=== PATIENT | female | born 1980 | race Caucasian/White ===

== ENCOUNTER 2022-03-08 23:32 | Observation (INO) | payer BC, MEDICAID ==
[~2022-03-08] VITALS: Ht 157.5 cm; Wt 108.9 kg
[~2022-03-08 23:32] MED LIST: ALBU17AE26 IH; OMEP40CA20 PO; PSEU30TA36; Q-VAR INH
[2022-03-08 23:35] VITALS: BP_SYST 145
--- NOTE | 2022-03-08 23:40 | NUR ---
DR. ALEXANDRE AT BEDSIDE FOR MSE
[2022-03-09 01:09] LABS: BASOPHILS % (AUTO) 0.7 % (0.0-2.0); EOSINOPHILS # (AUTO) 0.1 K/uL (0.0-0.4); EOSINOPHILS % (AUTO) 1.7 % (0.0-4.0); HEMOGLOBIN 8.6 g/dL (12.0-16.0); LYMPHOCYTES # (AUTO) 0.8 K/uL (1.0-5.5); LYMPHOCYTES % (AUTO) 15.6 % (20.5-51.5); MEAN CORPUSCULAR HEMOGLOBIN 23 pg (27-31); MEAN CORPUSCULAR HGB CONC 32 % (32-36); MEAN CORPUSCULAR VOLUME 71 fL (79.0-98.0); MONOCYTES # (AUTO) 0.3 K/uL (0.0-1.0); PLATELET COUNT (AUTO) 300 K/uL (130-430); RED CELL DISTRIBUTION WIDTH 16.8 % (9.0-15.0); WHITE BLOOD COUNT (AUTO) 5.3 K/uL (4.8-10.8)
[2022-03-09 01:15] LABS: ANION GAP 8 (5-15); CALCIUM 7.8 mg/dL (8.4-11.0); CHLORIDE 106 mmol/L (98-107); CREATININE 0.75 mg/dL (0.55-1.30); GLUCOSE 110 mg/dL (70-99); POTASSIUM 3.5 mmol/L (3.5-5.1); SODIUM SERUM 141 mmol/L (136-145); UREA NITROGEN, BLOOD 11 mg/dL (8-21)
[2022-03-09 01:19] LABS: PROTHROMBIN TIME 9.9 SECS (9.5-12.5)
[2022-03-09 01:23] LABS: ALANINE AMINOTRANSFERASE 22 U/L (12-78); ALBUMIN 3.2 g/dL (3.4-4.8); ASPARTATE AMINOTRANSFERASE 8 U/L (10-37); TOTAL BILIRUBIN < 0.1 mg/dL (0.0-1.0)
[2022-03-09 01:24] LABS: GFR AFRICAN AMERICAN 108 mL/min (>90)
--- NOTE | 2022-03-09 01:52 | NUR ---
REPORT RECEIEVED FROM MATTHEW STEINER RN AND AMBULANCE WHO WERE WAIITNG WITH PT IN [facility].
--- NOTE | 2022-03-09 01:53 | NUR ---
PT PLACED IN ROOM 2, REPORT RECIEVED.
--- NOTE | 2022-03-09 02:03 | NUR ---
PT STATES AT APPROX 11PM LAST NIGHT, SHE EXTENDED HER ARM TO SUPERVISOR SHUTTLE PREPARATION SOMETING WHEN SHE SUDDENLY FELT NUMBNESS TO ENTIRE LEFT ARM AND FELT HER LEFT SIDE OF FACE DROOP. PT BIBA FROM HOME, AAOX4, IN NAD. RESP EVEN AND UNLABORED, ON RA @97%. PT SPEAKING IN FULL CLEAR SENTENCES, NO FACIAL DROOP NOTED. VLADIMIR EQUAL HAND COUNSELING PROGRAM LEADER, MOVING ALL EXTREMITIES, NO DRIFT OBSERVED. PT REPORTS FEELING BETTER AT THIS TIME AND THAT SHE NO LONGER FEELS NUMB TO ARM/FACE. SKIN W/D/I. VSS.
--- NOTE | 2022-03-09 02:57 | NUR ---
NO ACUTE CHNAGES IN CONDITION, VSS. SAFETY PRECAUTIONS IN PLACE.
--- NOTE | 2022-03-09 03:05 | NUR ---
COVID TEST BEING DONE AT BEDSIDE.
--- NOTE | 2022-03-09 05:27 | NUR ---
PT REQUESTING TO GO TO BATHROOM, ASSISTED WITH MIN ASSIST.
--- NOTE | 2022-03-09 05:52 | NUR ---
Admit bed requested Patient will be admitted to care of . Admitted to TELE unit. Diagnosis CVA Inpatient (Yes or No) N Observation (Yes or No) Y Orientation concerns or request close to nursing station (Yes or No) N Covid Status NEG On vent or bipap N Isolation requirements N Needs a sitter N From Home (Yes or if No enter name of facility) Y Requires Dialysis (Yes or No) N Med Rec Completed (Yes of No) Y
--- NOTE | 2022-03-09 05:54 | NUR ---
CALLED [facility] IN UNIT FOR BED REQUEST.
--- NOTE | 2022-03-09 06:38 | NUR ---
Patient will be admitted to care of DR SANTANA. Admitted to unit. Will go to room . Belongings list completed. Complete and up to date summary report printed. REPORT GIVEN TOO EVIE TORRES
--- NOTE | 2022-03-09 06:45 | NUR ---
ADMISSION NOTE Received patient from ER via gurney. Patient admitted with diagnosis of stroke-like symptoms. Patient oriented to hospital routine, call light, toileting and safety-patient verbalized understanding.
--- NOTE | 2022-03-09 06:47 | NUR ---
CONSULTATION PAGED REASON FOR CONSULTATION:[facility] WAS CONSULT CALLED?Y PERSON WHO WAS NOTIFIED:CLEO CONSULTING PHYSICIAN:TITO RITTER GSA COORDINATOR SPECIALTY:-CARDIO GSA COORDINATOR PHONE NUMBER:[phone] REQUESTING PHYSICIAN:MAX ALCANTAR AMIT
--- NOTE | 2022-03-09 06:54 | NUR ---
CONSULTATION PAGED REASON FOR CONSULTATION:[facility] WAS CONSULT CALLED? PERSON WHO WAS NOTIFIED:TEXT MESSAGED OSMAR CARVER CONSULTING PHYSICIAN:OSMAR CARVER BILLIARD TABLE REPAIRER SPECIALTY:NEURO BILLIARD TABLE REPAIRER PHONE NUMBER:[phone] REQUESTING PHYSICIAN:JACOB RITTER
--- NOTE | 2022-03-09 07:30 | NUR ---
Closing Patient resting in bed, denies any stroke-like symptoms currently. BP elevated at 180/107 while seated in chair just before shift change. Report given to oncoming nurse. Oncoming nurse also given Dr. Ashley Santana's number and told that he said to call for anything urgent.
[2022-03-09 08:00] VITALS: BP_SYST 160
--- NOTE | 2022-03-09 08:00 | NUR ---
INITIAL NOTES PATIENT IS AWAKE, ALERT, AND ORIENTED. PT IS AMBULATORY. VITAL SIGNS OBTAINED. PT DENIES ANY CHEST PAIN OR HEAD PAIN AT THE MOMENT. DENIES AN STROKE SYMPTOMS. PT IS ON RA, SPO2 AT 99%. WILL CONTINUE TO MONITOR. PATIENT ORIENTED TO ROOM. SAFETY PRECAUTIONS IN PLACE AND CALL LIGHT WITHIN REACH.
[2022-03-09 08:15] VITALS: BP_SYST 160
[2022-03-09 08:29] VITALS: BP_SYST 160
--- NOTE | 2022-03-09 09:00 | NUR ---
Called and spoke to Dr. Darrick Santana, for increased BP. Orders received.
[2022-03-09] MEDS ORDERED: HYDROcodone/ACETAMIN 5-325 MG TAB (NORCO/ VICODIN) PO PRN (10:15)
[2022-03-09] MEDS ORDERED: ALBUTEROL SULFATE 0.083% 2.5 MG/3 ML VIAL.NEB INH PRN (10:15)
[2022-03-09] MEDS ORDERED: ACETAMINOPHEN 325 MG TABLET PO PRN (10:15)
[2022-03-09] MEDS ORDERED: LORazepam 2 MG/ML VIAL IVP PRN (10:15)
[2022-03-09] MEDS ORDERED: NALOXONE HCL 0.4 MG/ML AMP (NARCAN) IVP PRN ×2 (10:15)
[2022-03-09] MEDS ORDERED: HYDROcodone/ACETAMIN 10-325 MG TAB PO PRN (10:15)
[2022-03-09] MEDS ORDERED: ONDANSETRON HCL 4 MG/2 ML VIAL IVP PRN (10:15)
[2022-03-09] MEDS ORDERED: HYDROCHLOROTHIAZIDE 25 MG TABLET (HCTZ) PO ONE (10:30)
[2022-03-09 10:36] LABS: CHOLESTEROL 134 mg/dL (<200); HDL CHOLESTEROL 43 mg/dL (>55); LDL CHOLESTEROL 84 mg/dL (<100); TRIGLYCERIDES 95 mg/dL (30-150)
--- NOTE | 2022-03-09 11:00 | NUR ---
Notes Patient went to MRI.
[2022-03-09 12:00] VITALS: BP_SYST 160
--- NOTE | 2022-03-09 12:00 | NUR ---
Notes Patient is in bed, resting. denies any numbness or tingling of the extremities. No facial drooping noted. No s/s of distress. Patient denies any pain. Safety precautions in place and call light within reach.
[2022-03-09] MEDS ORDERED: NORMAL SALINE 5 ML DISP.SYRIN IVF SCH (14:00)
[2022-03-09] MEDS: NORMAL SALINE 5 ML DISP.SYRIN IVF SCH ×2 (15:18→22:00)
[2022-03-09 16:00] VITALS: BP_SYST 175
--- NOTE | 2022-03-09 16:30 | NUR ---
Notes Patient BP still elevated. Called and spoke to Dr. Cristobal Santana. Per , on his way to see patient.
[2022-03-09] MEDS: ACETAMINOPHEN 325 MG TABLET PO PRN ×2 (17:41→22:30)
--- NOTE | 2022-03-09 18:00 | NUR ---
Notes Pt has history of nodes removal of the right breast. IV changed to left hand.
--- NOTE | 2022-03-09 18:26 | NUR ---
Closing Noted Patient is in bed, no complaints of pain. NO numbness or tingling. NO facial drooping. Seen by court orderly.
--- NOTE | 2022-03-09 20:30 | NUR ---
Receiving Note: This nurse received pt and assessment was completed. This nurse received pt and assessment completed. Patient is in bed awake and resting. Pt denies any numbness or tingling of the extremities. All extremities with equal strength. No facial drooping noted. No s/s of distress. Patient denies any pain. Safety precautions in place and call light within reach.
[2022-03-09] MEDS ORDERED: Q VAR INH SCH (21:00)
[2022-03-10 00:35] VITALS: BP_SYST 170
[2022-03-10] MEDS: NORMAL SALINE 5 ML DISP.SYRIN IVF SCH ×2 (06:18→11:55)
[2022-03-10 06:19] LABS: EOSINOPHILS # (AUTO) 0.1 K/uL (0.0-0.4); EOSINOPHILS % (AUTO) 2.5 % (0.0-4.0); HEMOGLOBIN 9.8 g/dL (12.0-16.0); LYMPHOCYTES # (AUTO) 1.2 K/uL (1.0-5.5); LYMPHOCYTES % (AUTO) 29.4 % (20.5-51.5); MEAN CORPUSCULAR HEMOGLOBIN 22 pg (27-31); MEAN CORPUSCULAR HGB CONC 32 % (32-36); MEAN CORPUSCULAR VOLUME 71 fL (79.0-98.0); MONOCYTES # (AUTO) 0.2 K/uL (0.0-1.0); MONOCYTES % (AUTO) 6.3 % (1.7-9.3); NEUTROPHILS # (AUTO) 2.4 K/uL (1.8-7.7); NEUTROPHILS % (AUTO) 60.8 % (40.0-70.0); PLATELET COUNT (AUTO) 333 K/uL (130-430); RED BLOOD CELL COUNT(AUTO) 4.36 MIL/uL (4.2-6.2); RED CELL DISTRIBUTION WIDTH 16.3 % (9.0-15.0); WHITE BLOOD COUNT (AUTO) 3.9 K/uL (4.8-10.8)
[2022-03-10 06:48] LABS: ALBUMIN 3.3 g/dL (3.4-4.8); CALCIUM 8.4 mg/dL (8.4-11.0); CREATININE 0.75 mg/dL (0.55-1.30); PHOSPHORUS 4.1 mg/dL (2.7-4.5); POTASSIUM 3.3 mmol/L (3.5-5.1); TOTAL BILIRUBIN 0.2 mg/dL (0.0-1.0)
[2022-03-10] MEDS ORDERED: HYDROCHLOROTHIAZIDE 25 MG TABLET (HCTZ) PO SCH (09:00)
[2022-03-10] MEDS ORDERED: PANTOPRAZOLE SODIUM 40 MG TAB PO SCH (09:00)
[2022-03-10 09:20] VITALS: BP_SYST 140
--- NOTE | 2022-03-10 10:19 | NUR ---
Discharge Planning: DCP faxed clinicals to Elisabet Keita#[phone].
[2022-03-10] MEDS ORDERED: LOSARTAN POTASSIUM 50 MG TABLET (COZAAR) PO ONE (11:00)
[2022-03-10] MEDS ORDERED: METOPROLOL TARTRATE 25 MG TABLET PO ONE (11:00)
[2022-03-10] MEDS ORDERED: LOSA50TA3 PO (11:34)
[2022-03-10] MEDS ORDERED: HCT25 PO (11:34)
[2022-03-10] MEDS ORDERED: ASPI-1393 PO (11:34)
[2022-03-10] MEDS ORDERED: METO25TA6 PO (11:34)
[2022-03-10] MEDS ORDERED: LIP20 PO (11:34)
[2022-03-10 12:21] VITALS: BP_SYST 132
--- NOTE | 2022-03-10 15:29 | NUR ---
OKAY TO DC PER VP CLIENT SERVICES.
[2022-03-10 16:13] VITALS: BP_SYST 120
[2022-03-10 16:36] VITALS: BP_SYST 122
[2022-03-10] MEDS ORDERED: ATORVASTATIN 20 MG TABLET PO SCH (21:00)
[2022-03-10] MEDS ORDERED: METOPROLOL TARTRATE 25 MG TABLET PO SCH (21:00)
[2022-03-11] MEDS ORDERED: LOSARTAN POTASSIUM 50 MG TABLET (COZAAR) PO SCH (09:00)
[2022-03-11] MEDS ORDERED: HYDROCHLOROTHIAZIDE 25 MG TABLET (HCTZ) PO SCH (09:00)
== END 2022-03-10 17:25 | disposition home or self-care (01) ==
LOC: SED 23:32 → STU 03-09 05:49
PROVIDERS: ADMIT Preventive Medicine Preventive Medicine/Occupational Environmental Medicine; ATTEND Preventive Medicine Preventive Medicine/Occupational Environmental Medicine
DX: G45.9 Transient cerebral ischemic attack, unspecified (principal); Z20.822 Contact with and (suspected) exposure to COVID-19; R73.9 Hyperglycemia, unspecified; E83.52 Hypercalcemia; D64.9 Anemia, unspecified; E88.09 Other disorders of plasma-protein metabolism, not elsewhere classified; D72.819 Decreased white blood cell count, unspecified; J45.909 Unspecified asthma, uncomplicated; E66.09 Other obesity due to excess calories; R00.2 Palpitations; E87.6 Hypokalemia; E78.5 Hyperlipidemia, unspecified; E83.41 Hypermagnesemia; I10 Essential (primary) hypertension; I47.1 Supraventricular tachycardia; Z85.3 Personal history of malignant neoplasm of breast; Z79.899 Other long term (current) drug therapy
CPT/HCPCS: 36415 ×2; 70450; 70551; 71045; 76376; 80053 ×2; 80061; 83036; 83735; 84100; 84484; 85025 ×2; 85610; 85730; 87426; 93005; 93306; 93880; 97162; 99285; G0378 ×2